=== PATIENT | male | born 1990 | race African-American/Black ===

== ENCOUNTER 2021-11-17 13:58 | Emergency (ER) | payer OTHER ==
[~2021-11-17] VITALS: Ht 175.3 cm; Wt 94.1 kg
[2021-11-17] MEDS ORDERED: ALLE180T33 PO (17:38)
[2021-11-17 17:54] VITALS: BP 153/83
== END 2021-11-17 17:56 | disposition home or self-care (01) ==
LOC: M ED 13:58
DX: Z76.0 Encounter for issue of repeat prescription (principal); L50.1 Idiopathic urticaria

== ENCOUNTER → 2024-01-03 | Outpatient (CLI) | payer OTHER ==
[~2024-01-03] MED LIST: ALLE180T33 PO
[2024-01-03 12:18] LABS: EOS # 0.1 10^3/uL (0.0-0.5); EOS % 2.7 % (0.0-3.0); HEMATOCRIT 40.8 % (42.0-52.0); HEMOGLOBIN 14.2 g/dl (13.5-17.5); LYMPH # 1.9 10^3/uL (1.5-5.0); LYMPH % 38.7 % (24.0-44.0); MEAN CORPUSCULAR HEMOGLOBIN 29.8 pg (27.0-33.0); MEAN CORPUSCULAR HGB CONC 34.8 g/dl (32.0-36.5); MEAN CORPUSCULAR VOLUME 85.5 fl (80.0-96.0); MONO # 0.3 10^3/uL (0.0-0.8); MONO % 7.1 % (2.0-8.0); NEUTROPHILS # 2.5 10^3/uL (1.5-8.5); NEUTROPHILS % 51.1 % (36.0-66.0); PLATELET COUNT, AUTOMATED 204 10^3/uL (150-450); RED BLOOD COUNT 4.77 10^6/uL (4.30-6.10); WHITE BLOOD COUNT 4.8 10^3/uL (4.0-10.0)
[2024-01-03 12:23] LABS: ERYTHROCYTE SEDIMENTATION RATE 9 mm/hr (0-15)
[2024-01-03 12:54] LABS: ALKALINE PHOSPHATASE 155 U/L (46-116); ALT/SGPT 46 U/L (7.0-40); AST/SGOT 23 U/L (<34); BILIRUBIN,TOTAL 0.6 MG/DL (0.3-1.2); BLOOD UREA NITROGEN 13 MG/DL (9-23); CALCIUM LEVEL 9.7 MG/DL (8.5-10.1); CARBON DIOXIDE LEVEL 29 MMOL/L (20-31); CHLORIDE LEVEL 105 MMOL/L (98-107); CREATININE FOR GFR 0.96 MG/DL (0.70-1.30); GLOMERULAR FILTRATION RATE > 60.0 (>60); GLUCOSE, FASTING 89 MG/DL (60-100); SODIUM LEVEL 140 MMOL/L (136-145); TOTAL PROTEIN 7.5 G/DL (5.7-8.2)
[2024-01-03 12:56] LABS: COMPLEMENT C3 148.1 MG/DL (84.0-160.0); COMPLEMENT C4 36.1 MG/DL (12-36); RHEUMATOID FACTOR QUANT < 3.5 IU/ML (<14); THYROXINE (T4) 7.1 UG/DL (4.5-10.9)
[2024-01-03 12:57] LABS: THYROID STIMULATING HORMONE 1.438 uIU/ML (0.55-4.78)
[2024-01-03 12:59] LABS: THYROID PEROXIDASE ANTIBODY 36 U/ML (<60.0); TOTAL T3 150.1 NG/DL (60.0-181.0)
[2024-01-05 11:43] LABS: THRYOGLOBULIN ANTIBODIES (ATA) < 1 IU/mL (< or = 1)
[2024-01-05 14:58] LABS: ANA PATTERN Nuclear, Homogeneous (NEGATIVE); ANA PATTERN 2 Nuclear, Speckled; ANA SCREEN, IFA POSITIVE (NEGATIVE); ANA TITER 1:40 titer (<1:40); ANA TITER 2 1:40 titer (NEGATIVE)
== END ==
LOC: M LAB 11:42
PROVIDERS: ATTEND Allergy & Immunology Allergy
DX: L50.1 Idiopathic urticaria (principal)

== ENCOUNTER → 2024-11-27 | Outpatient (CLI) | payer OTHER | LOC: M PLALAB 09:14 | PROVIDERS: ATTEND Obstetrics & Gynecology | DX: Z31.440 Encounter of male for testing for genetic disease carrier status for procreative management (principal) ==